=== PATIENT | female | born 1970 | race Caucasian/White ===

== ENCOUNTER 2020-03-17 20:53 | Emergency (ER) | payer BC ==
[~2020-03-17] VITALS: Ht 157.5 cm; Wt 72.0 kg
--- NOTE | 2020-03-17 21:52 | PHYS DOC ---
General Adult EDM: Chief Complaint: ABDOMINAL PAIN HPI: HPI: 49-year-old female presents with right upper quadrant abdominal pain, general bloating, and rectal pain. Patient first noticed an epigastric discomfort this morning after she drank coffee. She has had no abdominal surgeries in the past. Since that time, she has had intermittent discomfort in this area all day. This evening, she felt like she needed to defecate, but was unable to go. She normally goes very regularly twice a day. She had discomfort in the rectum when she urinated. She has not had this symptom before either. She denies dysuria or increased urinary frequency. Denies fever or chills. When the patient was trying to have a bowel movement, she palpated the area and thought she felt a firm "mass" at the rectum. She denies recent rectal bleeding. No history of rectal bleeding. Review of Systems: Review of Systems: Constitutional: Denies fever or chills Eyes: Denies change in visual acuity HENT: Denies nasal congestion or sore throat Respiratory: Denies cough or shortness of breath Cardiovascular: Denies chest pain or edema GI: Right upper quadrant abdominal pain, constipation. : Denies dysuria. Rectal pain. Musculoskeletal: Denies back pain or joint pain Integument: Denies rash Neurologic: Denies headache, focal weakness or sensory changes Endocrine: Denies polyuria or polydipsia Lymphatic: Denies swollen glands Psychiatric: Denies depression or anxiety Physical Exam: PE: Constitutional: Well developed, well nourished, no acute distress, non-toxic appearance. [] HENT: Normocephalic, atraumatic, bilateral external ears normal, oropharynx moist, no oral exudates, nose normal. [] Eyes: PERRLA, EOMI, conjunctiva normal, no discharge. [] Neck: Normal range of motion, no tenderness, supple, no stridor. [] Cardiovascular:Heart rate regular rhythm, no murmur [] Lungs & Thorax: Bilateral breath sounds clear to auscultation [] Abdomen: Bowel sounds normal, soft, no tenderness, no masses, no pulsatile masses. [] Skin: Warm, dry, no erythema, no rash. [] Back: No tenderness, no CVA tenderness. [] Extremities: No tenderness, no cyanosis, no clubbing, ROM intact, no edema. [] Neurologic: Alert and oriented X 3, normal motor function, normal sensory function, no focal deficits noted. [] Psychologic: Affect normal, judgement normal, mood normal. Rectal:Normal external rectal exam with single skin tag. ALANA exam with significant discomfort and of fullness at the 12 o'clock position just inside the rectal opening. Patient cannot tolerate deeper insertion due to discomfort. [] EKG: EKG: [] Radiology/Procedures: Radiology/Procedures: [] Impressions: Exam: CT of abdomen and pelvis with contrast INDICATION: Rectal pain, epigastric pain TECHNIQUE: Sequential axial images through the abdomen and pelvis obtained following the administration of 75 mL of Omni 300 IV contrast. Sagittal and coronal reformatted images were reconstructed from the axial data and reviewed. Comparisons: None FINDINGS: Heart size is normal. No pericardial effusion. Visualized lung bases are clear. No pleural effusion. Several vague hypoattenuating lesions noted within the liver incompletely characterized on this study. Spleen, pancreas, gallbladder and adrenals are unremarkable. No perinephric inflammation or hydronephrosis. No renal or ureteral calculi are identified. Bladder is partially distended and not well evaluated. Uterus is nonenlarged. No abnormal adnexal mass. There is a small stool noted at the rectum. Mild wall thickening is also noted at the rectum. The colon is predominantly fluid-filled and nondilated. Appendix is normal. Small bowel is unremarkable. No free intra-abdominal air or fluid. No obstruction. Abdominal aorta has a normal course and caliber. Abdominal vasculature is patent. No enlarged intra-abdominal lymph nodes are identified. No suspicious osseous lesions or acute fractures. IMPRESSION: 1. Mild wall thickening at the rectal sphincter, may relate to infectious or inflammatory process. 2. There is a stool ball at the rectum. Otherwise the colon is predominantly fluid-filled. Correlate for diarrhea. 3. Several hepatic lesions incompletely characterized on this study favored represent hemangiomas and simple cysts. Further evaluation with nonemergent/outpatient liver protocol CT or MRI is recommended. Exposure: One or more of the following in the visualized dose reduction techniques were utilized for this examination: 1. Automated exposure control 2. Adjustment of the MA and/or KV according to patient size 3. Use of iterative of reconstructive technique Electronically signed by: Monae Cortés MD (03/17/2020 10:50 PM) [id number] DICTATED AND SIGNED BY: MONAE CORTÉS MD DATE: 03/17/20 4022 CC: EDUARDO TAMAYO DO; ART BRUSH ~ Heart Score: Risk Factors: Risk Factors: DM, Current or recent (<one month) smoker, HTN, HLP, family history of CAD, obesity. Risk Scores: Score 0 - 3: 2.5% MACE over next 6 weeks - Discharge Home Score 4 - 6: 20.3% MACE over next 6 weeks - Admit for Clinical Observation Score 7 - 10: 72.7% MACE over next 6 weeks - Early Invasive Strategies Course & Med Decision Making: Course & Med Decision Making Pertinent Labs and Imaging studies reviewed. (See chart for details) The patient's labs are unremarkable. Her CT scan shows inflammation of the rectal wall which could be infectious or inflammatory. See official read for more details. The patient is quite uncomfortable in her rectum. She feels like she needs to have a bowel movement, but cannot. She is very anxious. It is painful to attempt to go and she is unable to relax at all. We will try 2% lidocaine gel at the rectum to see if we can numb the area. The patient has been too anxious to insert this gel so far. I will give her 2 mg of Ativan IV to see if this helps. We were able to manually disimpact some of the stool which was completely comprised of pumpkin seeds. There was no formed stool at all. The patient did not tolerate this very well. We attempted a Fleet enema and this was minimally effective. Then decided to give her 100 mcg of fentanyl and attempt manual disimpaction again. We had some success but even through the pain medication she was uncomfortable. I talked with her about this and she would like to go home. I will send her home with [place] 7.5's and advised that she take 2 of them before she tries to have a bowel movement tomorrow. She may have to come back to the hospital and be seen by GI. I just done. I am going to treat her for 7 days with levofloxacin in case her liver inflammation is infectious. She is stable for discharge at this time. [] Therese Disclaimer: Dragvioleta Disclaimer: This electronic medical record was generated, in whole or in part, using a voice recognition dictation system. Departure Departure: Impression: Primary Impression: Constipation Qualified Codes: K59.02 - Outlet dysfunction constipation Additional Impression: Rectal pain Disposition: 01 DC HOME SELF CARE/HOMELESS Condition: STABLE Referrals: ART BRUSH (PCP) Patient Instructions: Constipation, Adult, Unpa-cd-[id number] Scripts Hydrocodone Bit/Acetaminophen (NORCO 7.5-325 TABLET) 1 Each Tablet 1 TAB PO PRN Q6HRS PRN for PAIN, #14 TAB 0 Refills Prov: EDUARDO TAMAYO DO 03/18/20 EDUARDO TAMAYO DO Mar 17, 2020 21:52
[2020-03-17] MEDS ORDERED: CONTRAST GIVEN. MC PRN (22:15)
[2020-03-17 22:30] LABS: BASO % 0 % (0-3); EOS % 0 % (0-3); HEMATOCRIT 40.8 % (36.0-47.0); HEMOGLOBIN 13.6 g/dL (12.0-15.5); LYMPH # 0.9 x10^3/uL (1.0-4.8); LYMPH % 8 % (24-48); MEAN CORPUSCULAR HEMOGLOBIN 32 pg (25-35); MEAN CORPUSCULAR HGB CONC 33 g/dL (31-37); MEAN CORPUSCULAR VOLUME 95 fL (79-100); MONO # 0.7 x10^3/uL (0.0-1.1); MONO % 7 % (0-9); NEUT # 9.4 x10^3uL (1.8-7.7); NEUT % 85 % (31-73); PLATELET COUNT 238 x10^3/uL (140-400); RED BLOOD COUNT 4.31 x10^6/uL (3.50-5.40); RED CELL DISTRIBUTION WIDTH 12.6 % (11.5-14.5); WHITE BLOOD COUNT 11.1 x10^3/uL (4.0-11.0)
[2020-03-17] MEDS ORDERED: IOHEXOL 300 MG/ML 75 ML VIAL. IV ONE (22:30)
[2020-03-17 22:39] LABS: CALCIUM 8.6 mg/dL (8.5-10.1); CREATININE 0.8 mg/dL (0.6-1.0); GFR 75.9; POTASSIUM 4.1 mmol/L (3.5-5.1)
[2020-03-17 22:46] LABS: ALBUMIN 3.9 g/dL (3.4-5.0); ALBUMIN/GLOBULIN RATIO 1.2 (1.0-1.7); TOTAL BILIRUBIN 0.2 mg/dL (0.2-1.0); TOTAL PROTEIN 7.1 g/dL (6.4-8.2)
--- NOTE | 2020-03-17 22:52 | RAD ---
Exam: CT of abdomen and pelvis with contrast INDICATION: Rectal pain, epigastric pain TECHNIQUE: Sequential axial images through the abdomen and pelvis obtained following the administration of 75 mL of Omni 300 IV contrast. Sagittal and coronal reformatted images were reconstructed from the axial data and reviewed. Comparisons: None FINDINGS: Heart size is normal. No pericardial effusion. Visualized lung bases are clear. No pleural effusion. Several vague hypoattenuating lesions noted within the liver incompletely characterized on this study. Spleen, pancreas, gallbladder and adrenals are unremarkable. No perinephric inflammation or hydronephrosis. No renal or ureteral calculi are identified. Bladder is partially distended and not well evaluated. Uterus is nonenlarged. No abnormal adnexal mass. There is a small stool noted at the rectum. Mild wall thickening is also noted at the rectum. The colon is predominantly fluid-filled and nondilated. Appendix is normal. Small bowel is unremarkable. No free intra-abdominal air or fluid. No obstruction. Abdominal aorta has a normal course and caliber. Abdominal vasculature is patent. No enlarged intra-abdominal lymph nodes are identified. No suspicious osseous lesions or acute fractures. IMPRESSION: 1. Mild wall thickening at the rectal sphincter, may relate to infectious or inflammatory process. 2. There is a stool ball at the rectum. Otherwise the colon is predominantly fluid-filled. Correlate for diarrhea. 3. Several hepatic lesions incompletely characterized on this study favored represent hemangiomas and simple cysts. Further evaluation with nonemergent/outpatient liver protocol CT or MRI is recommended. Exposure: One or more of the following in the visualized dose reduction techniques were utilized for this examination: 1. Automated exposure control 2. Adjustment of the MA and/or KV according to patient size 3. Use of iterative of reconstructive technique Electronically signed by: Monae Zaman MD (03/17/2020 10:50 PM) [id number]
[2020-03-17] MEDS ORDERED: IV NORMAL SALINE 1,000ML 1,000 ML IV ONE (23:30)
[2020-03-17] MEDS ORDERED: LIDOCAINE 2% JELLY 10ML IN APPLICATOR. ONE (23:41)
[2020-03-18] MEDS ORDERED: LIDOCAINE 2% JELLY 10ML IN APPLICATOR. MM ONE
[2020-03-18] MEDS ORDERED: levoFLOXacin 500 MG TABLET PO ONE (01:00)
[2020-03-18] MEDS ORDERED: SODIUM PHOSPHATES 19/7GM 133 ML ENEMA. ONE (01:07)
[2020-03-18] MEDS ORDERED: SODIUM PHOSPHATES 19/7GM 133 ML ENEMA. PR ONE (01:30)
[2020-03-18] MEDS ORDERED: HYDR-3166 PO (02:02)
[2020-03-18] MEDS ORDERED: LEVO750T5 PO (02:04)
[2020-03-18 02:21] VITALS: BP 122/73
== END 2020-03-18 02:45 | disposition home or self-care (01) ==
LOC: EDBD → ER 20:53
DX: K59.02 Outlet dysfunction constipation (principal); K62.5 Hemorrhage of anus and rectum
CPT/HCPCS: 36415; 74177; 80053; 85025; 96361; 96374; 96375; 99285; J2060; J3010; J7030; Q9967

== ENCOUNTER 2020-03-20 13:03 | Observation (INO) | payer BC ==
[~2020-03-20] VITALS: Ht 157.5 cm; Wt 72.0 kg
[~2020-03-20 13:03] MED LIST: HYDR-3166 PO; LEVO750T5 PO
--- NOTE | 2020-03-20 13:19 | PHYS DOC ---
Past History Past Medical History: No Pertinent History, Other Additional Past Medical Histor: adhd Past Surgical History: Tonsillectomy, Other Additional Past Surgical Histo: rt ankle Alcohol Use: Rarely Adult General HPI HPI Patient is a 49-year-old female who presents for constipation. Patient was seen here 3 days ago after ingesting approximately 8 to 12 ounces of pumpkin seeds the day prior. Patient was subsequently seen at our facility for severe constipation, attempts were made to manually disimpact patient but it was too painful to proceed. Patient was ultimately discharged home with supportive care advised. Patient reports taking x2 doses of Doculax since discharge, has yet to have a bowel movement. Last bowel movement was 4 days ago. She continues to have generalized abdominal pain and rectal pain. Patient reports p.o. intake h as decreased in last 48 hours. Still passing flatulence at this time Review of Systems Review of Systems Fourteen body systems of review of systems have been reviewed. See HPI for pertinent positives and negative responses, other hallman all other systems are negative, non-pertinent or non-contributory Allergies Allergies Allergies Coded Allergies Type Severity Reaction Last Updated Verified No Known Drug Allergies 03/17/20 No Physical Exam Physical Exam Constitutional: Well developed, well nourished, moderate distress due to pain, non-toxic appearance. HENT: Normocephalic, atraumatic, bilateral external ears normal, oropharynx m oist, no oral exudates, nose normal. Eyes: PERRLA, EOMI, conjunctiva normal, no discharge. Neck: Normal range of motion, no tenderness, supple, no stridor. Cardiovascular: Heart rate regular, sinus rhythm, no murmurs rubs or gallops Lungs & Thorax: Bilateral breath sounds clear to auscultation Abdomen: Bowel sounds normal, soft, generalized tenderness without rebound, guarding present, no masses, no pulsatile masses. Nonsurgical abdomen, no peritoneal signs : Unremarkable genitalia, rectal exam remarkable for x1 external nonthrombosed hemorrhoid, patient had obvious pumpkin seed around anal sphincter, attempt was made to perform ALANA but was too painful and not tolerated by patient and discontinued prematurely Skin: Warm, dry, no erythema, no rash. Back: No tenderness, no CVA tenderness. Extremities: No tenderness, no cyanosis, no clubbing, ROM intact, no edema. Neurologic: Alert and oriented X 3, grossly normal motor & sensory function, no focal deficits noted. Psychologic: Affect normal, judgement normal, anxious Current Patient Data Vital Signs Vital Signs Date Time Temp Pulse Resp B/P (MAP) Pulse Ox O2 Delivery O2 Flow Rate FiO2 03/20/20 16:11 97.6 72 18 108/76 (87) 97 Room Air Lab Results Laboratory Tests Test 03/20/20 13:46 White Blood Count 6.1 x10^3/uL (4.0-11.0) Red Blood Count 4.06 x10^6/uL (3.50-5.40) Hemoglobin 12.7 g/dL (12.0-15.5) Hematocrit 38.3 % (36.0-47.0) Mean Corpuscular Volume 94 fL (79-100) Mean Corpuscular Hemoglobin 31 pg (25-35) Mean Corpuscular Hemoglobin Concent 33 g/dL (31-37) Red Cell Distribution Width 12.3 % (11.5-14.5) Platelet Count 225 x10^3/uL (140-400) Neutrophils (%) (Auto) 69 % (31-73) Lymphocytes (%) (Auto) 21 % (24-48) Monocytes (%) (Auto) 7 % (0-9) Eosinophils (%) (Auto) 3 % (0-3) Basophils (%) (Auto) 1 % (0-3) Neutrophils # (Auto) 4.2 x10^3uL (1.8-7.7) Lymphocytes # (Auto) 1.3 x10^3/uL (1.0-4.8) Monocytes # (Auto) 0.4 x10^3/uL (0.0-1.1) Eosinophils # (Auto) 0.2 x10^3/uL (0.0-0.7) Basophils # (Auto) 0.0 x10^3/uL (0.0-0.2) Sodium Level 142 mmol/L (136-145) Potassium Level 3.8 mmol/L (3.5-5.1) Chloride Level 106 mmol/L (98-107) Carbon Dioxide Level 31 mmol/L (21-32) Anion Gap 5 (6-14) Blood Urea Nitrogen 8 mg/dL (7-20) Creatinine 0.9 mg/dL (0.6-1.0) Estimated GFR (Cockcroft-Gault) 66.3 BUN/Creatinine Ratio 9 (6-20) Glucose Level 89 mg/dL (70-99) Calcium Level 9.0 mg/dL (8.5-10.1) Total Bilirubin 0.5 mg/dL (0.2-1.0) Aspartate Amino Transf (AST/SGOT) 10 U/L (15-37) Alanine Aminotransferase (ALT/SGPT) 15 U/L (14-59) Alkaline Phosphatase 58 U/L (46-116) Total Protein 6.6 g/dL (6.4-8.2) Albumin 3.5 g/dL (3.4-5.0) Albumin/Globulin Ratio 1.1 (1.0-1.7) EKG EKG [] Radiology/Procedures Radiology/Procedures PROCEDURE: KUB One view lower and pelvis KUB HISTORY: Follow-up Supine AP view lower and pelvis There is air and stool scattered throughout the colon. There is relative paucity of small bowel gas. There is no obvious free air on this supine view. IMPRESSION: Abnormal bowel gas pattern suggesting mild ileus or constipation. Electronically signed by: Rangel Roldan III, MD (03/20/2020 1:49 PM) [facility] Heart Score HEART Score for Chest Pain: HEART Score for Chest Pain Response (Comments) Value History Slighlty/Non-Suspicious 0 ECG Normal 0 Age < 45 0 Risk Factors No Risk Factors 0 Total 0 Risk Factors: Risk Factors: DM, Current or recent (<one month) smoker, HTN, HLP, family history of CAD, obesity. Risk Scores: Risk Factors: DM, Current or recent (<one month) smoker, HTN, HLP, family history of CAD, obesity. Course & Med Decision Making Course & Med Decision Making Pertinent Labs and Imaging studies reviewed. (See chart for details) Discussed most likely diagnosis of ileus secondary to constipation Attempts were made to manually disimpact patient while in ER but this was not tolerated by patient. Patient has not had good p.o. intake. She has also not taken any home laxatives/stimulants/stool softeners etc. Given distress and severe anxiety patient has regarding manual disimpaction at this time, joint decision was made to continue medical management with fluid rehydration and medical therapy to get her bowels moving Dr. Antony, hospitalist at [facility] was contacted and case discussed. He accepted and agreed for admission under his care for continued bowel cleanout Patient updated on this decision and plan of care and agreeable. All questions and concerns addressed prior to ER departure to [facility] in stable condition for further medical management Therese Disclaimer Dragon Disclaimer This electronic medical record was generated, in whole or in part, using a voice recognition dictation system. Departure Departure: Impression: Primary Impression: Constipation Additional Impression: Ileus Disposition: ADMITTED INPT THIS HOSP Admitting Physician: Christophe Antony Condition: STABLE Referrals: ART BRUSH (PCP) Problem Qualifiers YO LEWIS DO Mar 20, 2020 13:19
[2020-03-20] MEDS ORDERED: IV NORMAL SALINE 1,000ML 1,000 ML IV ONE (13:30)
[2020-03-20] MEDS ORDERED: SODIUM PHOSPHATES 19/7GM 133 ML ENEMA. ONE (13:47)
--- NOTE | 2020-03-20 13:52 | RAD ---
One view lower and pelvis KUB HISTORY: Follow-up Supine AP view lower and pelvis There is air and stool scattered throughout the colon. There is relative paucity of small bowel gas. There is no obvious free air on this supine view. IMPRESSION: Abnormal bowel gas pattern suggesting mild ileus or constipation. Electronically signed by: Rangel Roldan III, MD (03/20/2020 1:49 PM) [facility]
[2020-03-20 13:59] LABS: BASO % 1 % (0-3); EOS # 0.2 x10^3/uL (0.0-0.7); EOS % 3 % (0-3); HEMATOCRIT 38.3 % (36.0-47.0); HEMOGLOBIN 12.7 g/dL (12.0-15.5); LYMPH # 1.3 x10^3/uL (1.0-4.8); LYMPH % 21 % (24-48); MEAN CORPUSCULAR HEMOGLOBIN 31 pg (25-35); MEAN CORPUSCULAR HGB CONC 33 g/dL (31-37); MEAN CORPUSCULAR VOLUME 94 fL (79-100); MONO # 0.4 x10^3/uL (0.0-1.1); MONO % 7 % (0-9); NEUT # 4.2 x10^3uL (1.8-7.7); NEUT % 69 % (31-73); PLATELET COUNT 225 x10^3/uL (140-400); RED BLOOD COUNT 4.06 x10^6/uL (3.50-5.40); RED CELL DISTRIBUTION WIDTH 12.3 % (11.5-14.5); WHITE BLOOD COUNT 6.1 x10^3/uL (4.0-11.0)
[2020-03-20 14:08] LABS: CREATININE 0.9 mg/dL (0.6-1.0); GFR 66.3; POTASSIUM 3.8 mmol/L (3.5-5.1)
[2020-03-20 14:14] LABS: ALBUMIN 3.5 g/dL (3.4-5.0); ALBUMIN/GLOBULIN RATIO 1.1 (1.0-1.7); TOTAL BILIRUBIN 0.5 mg/dL (0.2-1.0); TOTAL PROTEIN 6.6 g/dL (6.4-8.2)
[2020-03-20] MEDS ORDERED: MAGNESIUM CITRATE 296 ML SOLUTION. PO ONE (14:30)
[2020-03-20] MEDS: IV NORMAL SALINE 1,000ML 1,000 ML IV SCH ×2 (14:34→19:11)
[2020-03-20 16:11] VITALS: BP 108/76
[2020-03-20] MEDS ORDERED: LISD50CA3 PO (16:17)
--- NOTE | 2020-03-20 16:18 | NUR ---
NURSING NOTE: ADMISSION PT ADMITTED TO UNIT AT 1530 VIA EMS. PT AMBULATED TO BED FROM STRETCHER. PT COMPLAINS OF RECTAL PAIN AND CONSTIPATION AFTER EATING A SOLO CUP FULL OF PUMPKIN SEEDS. NOTIFIED OF PT ARRIVAL. PT ORIENTED TO UNIT. PT RESTING COMFORTABLY IN BED. WILL CONTINUE TO MONITOR. DARLING SANDY
[2020-03-20] MEDS: MAGNESIUM CITRATE 296 ML SOLUTION. PO ONE ×2 (17:00→17:53)
[2020-03-20] MEDS ORDERED: PEG 3350/NA SULF,BICARB,CL/KCL 4,000 ML SOLUTION. PO PRN (17:00)
[2020-03-20] MEDS ORDERED: LIDOCAINE 2% VISCOUS 15 ML SOLUTION. TOP PRN (17:00)
[2020-03-20] MEDS: MORPHINE SULFATE 2 MG/ML DISP.SYRIN. IV PRN ×2 (18:00→20:00)
--- NOTE | 2020-03-20 18:29 | NUR ---
NURSING NOTE: PT REFUSED ORAL LAXATIVES AT THIS TIME. PT STATED SHE IS HURTING TOO BADLY FOR ANY MORE LAXATIVES. NOTIFIED. WILL CONTINUE TO MONITOR. DARLING SANDY
[2020-03-20] MEDS ORDERED: GLYCERIN/WITCH HAZEL TOPICAL PADS 40'S JAR. TP PRN (18:30)
[2020-03-20] MEDS ORDERED: MAGNESIUM CITRATE 296 ML SOLUTION. PO PRN (18:45)
[2020-03-20 19:00] VITALS: BP 136/93
--- NOTE | 2020-03-20 19:47 | NUR ---
Pt refused mag citrate.
[2020-03-20] MEDS: MORPHINE SULFATE 4 MG/ML DISP.SYRIN. IV PRN (22:02)
[2020-03-20 23:00] VITALS: BP 104/65
[2020-03-21] MEDS: MORPHINE SULFATE 4 MG/ML DISP.SYRIN. IV PRN ×4 (00:26→08:24)
[2020-03-21] MEDS: IV NORMAL SALINE 1,000ML 1,000 ML IV SCH ×2 (01:38→10:24)
--- NOTE | 2020-03-21 05:26 | NUR ---
Shift Note: Pt is a/o x4, VSS, no c/o nausea or vomiting, pt started the shift in extreme pain rating it a 10:10 describing as "burning like battery acid running through her colon and out her rectum" (during this time the pt was crying uncontrollably), called Dr. Antony to get an increase in pain medication (orders received), pt pt the increased dose of morphine worked much better, pt is no longer having liquid only stools, pt reports that stools are still very loose but have some form to them and she feels her stomach distention and constipation feeling improved. I did receive a call the the patient's mother, Melissa, last evening, she is very concerned that this hospital does not have a GI physician, I assured her that the treatment would be the same for constipation even if the doctor was a GI physician, she verbalized understanding, however she wants to talk with Dr. Antony in the am (will advise day shift). Pt expresses a desire to go home as soon as possible however IV pain medication is still required for pain management at this point.
[2020-03-21 07:38] VITALS: BP 86/54
[2020-03-21 11:00] VITALS: BP 112/62
--- NOTE | 2020-03-21 11:01 | HP ---
ADMIT DATE: 03/20/2020 ATTENDING PHYSICIAN: Dr. oBwens. CHIEF COMPLAINT: Constipation. HISTORY OF PRESENT ILLNESS: The patient is a 49-year-old female admitted from the ED with a 4-day history of severe constipation to the point of obstipation. Her last bowel movement was 4 days prior to this admission. Several attempts to manually disimpact, the patient was curtailed because it was too painful at the rectal site to proceed. She was discharged home with supportive care. She has had several doses of Dulcolax. She has not had any improvement. She was admitted then with refractory obstipation, refractory to outpatient care. She continues to have generalized abdominal pain, rectal pain. I do not see any narcotics that are causing these symptoms; however, she is taking Vyvanse. PAST MEDICAL HISTORY: Unremarkable for any major illnesses. She only uses Vyvanse. SOCIAL HISTORY: She is a smoker, a few cigarettes a day; a pack will last her a week. FAMILY HISTORY: Mom and dad are both alive in their mid 70s. REVIEW OF SYSTEMS: Significant for the constipation. She states that is related to ingestion of pumpkin seed. She is otherwise active, alert. She is functional. No COVID exposure. No fevers or chills. All other systems reviewed and turned to be negative. PHYSICAL EXAMINATION: GENERAL: When I saw her, this is a pleasant young female. INITIAL VITAL SIGNS: Showed a blood pressure between 80 and 100 systolic. Temperature 97.6 degrees Fahrenheit, room air saturation 95%, pulse is 60 and regular. HEENT: Head is without trauma. Pupils are reactive. Sclerae are nonicteric. Oropharynx is clear. NECK: Supple, no bruits identified. LUNGS: Otherwise clear. CARDIOVASCULAR: Showed regular heart tones. No gallops. ABDOMEN: Soft, scaphoid, nontender, no organomegaly. Bowel sounds were hypoactive. EXTREMITIES: Show no cyanosis or edema. RECTAL EXAM: I did do an external visual exam of her rectal area. There is some redness and erythema, mild external hemorrhoids due to pain. I did not do a digital rectal exam at this time. SKIN: Otherwise warm and dry. PERTINENT LABORATORY STUDIES: Admission hemoglobin was 12.7 g/dL, white count 6100. Electrolytes; BUN and creatinine all within normal range. The KUB from the ER showed no obvious obstruction, questionable ileus. There is air and stool scattered throughout the colon, no free air gas pattern suggestive of constipation. ASSESSMENT: 1. A 49-year-old female with acute constipation to the point of obstipation. 2. Severe rectal pain related to constipation. PLAN: 1. Observation status. 2. I will offer magnesium citrate as opposed to GoLYTELY purge. The volume is quite a bit less. 3. Continue home meds. 4. Pain and nausea control. ZAC BOWENS MD DR: MISAEL/nu JOB#: [id number] / [id number] ART Saleh
--- NOTE | 2020-03-21 11:10 | NUR ---
Pt discharged alert and oriented, ambulated to front door, vitals stable, written medications given to patient. All questions answered. Dr Antony called to update mother Melissa before discharge. Gave pt information on how to prevent constipation, and info on soft diet.
--- NOTE | 2020-03-21 13:04 | DS ---
DATE OF DISCHARGE: 03/21/2020 ATTENDING PHYSICIAN: Dr. Bowens. FINAL DISCHARGE DIAGNOSES: 1. Obstipation, resolved. 2. Abdominal pain related to obstipation. 3. Severe rectal pain. 4. External hemorrhoids. HISTORY AND PHYSICAL: This is a 49-year-old female who has had severe constipation to the point of obstipation. No bowel movements for 4 days prior to coming in. Digital manual removal of impaction was unsuccessful due to the patient's pain threshold. She was admitted for further treatment and evaluation. PHYSICAL EXAMINATION: Please see the dictated note. PERTINENT LABORATORY AND X-RAY STUDIES: KUB upright showed gas pattern consistent with constipation. No obstruction. She did not have ileus. Her electrolytes, BUN, CBC, chemistry are all within normal range. COURSE IN THE HOSPITAL: The patient was given one dose of magnesium citrate, the second dose was helpful. She had 4 good bowel movements and resolution of her problems. By the next day, she was feeling better. Abdomen was soft. She still had localized perirectal pain, but this will heal. Her vital signs were stable. She was ready for discharge. At this time, I recommended MiraLax 17 g daily. In addition, she had a script for Percocet 10 mg 1 every 6 hours p.r.n. pain. She will followup with her primary care physician as scheduled. The patient was then discharged from our hospital in stable condition with explicit instructions and followup care. ZAC BOWENS MD DR: MISAEL/nu JOB#: [id number] / [id number] Dr. Roxy Lindsay
== END 2020-03-21 11:04 | disposition home or self-care (01) ==
LOC: ER 13:03 → EDBD 13:03 → ICU 14:30
PROVIDERS: ADMIT Hospitalist; ATTEND Hospitalist
DX: K56.7 Ileus, unspecified (principal); K59.00 Constipation, unspecified; K64.4 Residual hemorrhoidal skin tags; K62.89 Other specified diseases of anus and rectum; F17.210 Nicotine dependence, cigarettes, uncomplicated; Z90.49 Acquired absence of other specified parts of digestive tract
CPT/HCPCS: 36415; 74018; 80053; 85025; 96361; 96374; 96376; 99284; G0378; G0379; J2270; J7030